=== PATIENT | female | born 2000 | race Caucasian/White ===

== ENCOUNTER 2019-04-26 19:54 | Emergency (ER) | payer MEDICAID ==
[~2019-04-26] VITALS: Ht 165.1 cm; Wt 79.4 kg
[2019-04-26 20:04] VITALS: BP_SYST 134
--- NOTE | 2019-04-26 20:11 | NUR ---
Pt placed to ER waiting room in stable condition.
--- NOTE | 2019-04-26 23:06 | NUR ---
Pt C/O chest pain radiating to Lt shoulder since Friday. Pain is intermittent and worsens on inspiration, reports heavy lifting for the past few days. Denies chest pain, shortness of breath, N/V/D, or any other symptoms at this time. Will continue to monitor.
--- NOTE | 2019-04-26 23:06 | NUR ---
Pt placed to ER bed 01. Report given to JULIO CÉSAR Lucas.
--- NOTE | 2019-04-26 23:08 | NUR ---
Dr. Burnett at bedside.
[2019-04-26] MEDS ORDERED: KETOROLAC TROMETHAMINE 60 MG/2 ML VIAL IM ONE (23:15)
--- NOTE | 2019-04-27 00:15 | NUR ---
Pt states pain has not been relieved with the medication. Dr. Burnett reassessing pt at this time
[2019-04-27 01:02] LABS: BASOPHILS # (AUTO) 0.1 K/uL (0.0-0.2); BASOPHILS % (AUTO) 0.4 % (0.0-2.0); EOSINOPHILS # (AUTO) 0.3 K/uL (0.0-0.4); EOSINOPHILS % (AUTO) 2.3 % (0.0-4.0); HEMATOCRIT 34.6 % (36-48); HEMOGLOBIN 11.4 g/dL (12.0-16.0); LYMPHOCYTES # (AUTO) 4.2 K/uL (1.0-5.5); LYMPHOCYTES % (AUTO) 33.3 % (20.5-51.5); MEAN CORPUSCULAR HEMOGLOBIN 25 pg (27-31); MEAN CORPUSCULAR HGB CONC 33 % (32-36); MEAN CORPUSCULAR VOLUME 75 fL (79.0-98.0); MONOCYTES # (AUTO) 0.9 K/uL (0.0-1.0); MONOCYTES % (AUTO) 7.3 % (1.7-9.3); NEUTROPHILS # (AUTO) 7.2 K/uL (1.8-7.7); NEUTROPHILS % (AUTO) 56.7 % (40.0-70.0); PLATELET COUNT (AUTO) 303 K/uL (130-430); RED CELL DISTRIBUTION WIDTH 16.8 % (9.0-15.0); WHITE BLOOD COUNT (AUTO) 12.7 K/uL (4.8-10.8)
[2019-04-27 01:11] LABS: CREATININE 0.87 mg/dL (0.55-1.30); POTASSIUM 3.6 mmol/L (3.5-5.1)
--- NOTE | 2019-04-27 01:15 | NUR ---
Pt is resting comfortably in bed, no acute distress noted at this time. Will continue to monitor.
[2019-04-27 01:24] LABS: ALBUMIN 3.3 g/dL (3.4-4.8); TOTAL BILIRUBIN 0.2 mg/dL (0.0-1.0)
[2019-04-27] MEDS ORDERED: LORazepam 1 MG TABLET PO ONE (01:45)
[2019-04-27 02:01] VITALS: BP_SYST 128
--- NOTE | 2019-04-27 02:01 | NUR ---
Patient given written and verbal discharge instructions and verbalizes understanding. ER MD discussed with patient the results and treatment provided. Patient in stable condition. ID arm band removed. Rx of Methocarbamol given. Patient educated on pain management and to follow up with PMD. Pain Scale 0/10. Opportunity for questions provided and answered. Medication side effect fact sheet provided.
== END 2019-04-27 02:01 | disposition home or self-care (01) ==
LOC: SED 19:54
DX: R07.89 Other chest pain (principal); F41.9 Anxiety disorder, unspecified
CPT/HCPCS: 36415; 71045; 80053; 84484; 85025; 93005; 96372; 99284; J1885

== ENCOUNTER 2020-12-08 06:10 | Day surgery (SDC) | payer MEDICAID ==
[~2020-12-08] VITALS: Ht 165.1 cm; Wt 72.6 kg
[2020-12-08 07:02] LABS: HCG,QUAL RESULT NEGATIVE (NEGATIVE)
[2020-12-08] MEDS ORDERED: MEPERIDINE HCL/PF 25 MG/ML DISP.SYRIN IVP PRN (08:45)
[2020-12-08] MEDS ORDERED: METOCLOPRAMIDE HCL 10 MG/2 ML VIAL IVP PRN (08:45)
[2020-12-08] MEDS ORDERED: HYDROmorphone 1 MG INJ. 1 MG/ML AMPUL IVP PRN ×2 (08:45)
[2020-12-08] MEDS ORDERED: LR 1,000 ML IV SCH (08:45)
[2020-12-08] MEDS ORDERED: ONDANSETRON HCL 4 MG/2 ML VIAL IVP PRN (08:45)
[2020-12-08] MEDS ORDERED: MIDAZOLAM HCL 2 MG/2 ML VIAL (VERSED) IVP PRN (08:45)
[2020-12-08 12:58] VITALS: BP_SYST 124
== END 2020-12-08 12:40 | disposition home or self-care (01) ==
LOC: SDS 06:10 → SMU 06:12 → SDS 12:40
PROVIDERS: ATTEND Otolaryngology
DX: J34.89 Other specified disorders of nose and nasal sinuses (principal); J32.9 Chronic sinusitis, unspecified; D38.5 Neoplasm of uncertain behavior of other respiratory organs; J34.2 Deviated nasal septum; J35.2 Hypertrophy of adenoids; F14.10 Cocaine abuse, uncomplicated; Z79.899 Other long term (current) drug therapy; Z20.828 Contact with and (suspected) exposure to other viral communicable diseases
CPT/HCPCS: 30140; 30520; 31240; 31255; 31256; 31298; 84703; 87070; 87075; 87101; 88304; 88305; 88311; C1726; U0003